=== PATIENT | female | born 1985 | race Caucasian/White ===

== ENCOUNTER 2020-03-13 18:58 | Emergency (ER) | payer SELFPAY ==
[~2020-03-13] VITALS: Ht 172.7 cm; Wt 72.6 kg
[2020-03-13 19:03] VITALS: Ht 172.7 cm; Wt 72.6 kg
[2020-03-13 22:13] VITALS: BP 101/98
== END 2020-03-13 22:14 | disposition home or self-care (01) ==
LOC: ED 18:58
DX: S06.0X0A Concussion without loss of consciousness, initial encounter (principal); S01.01XA Laceration without foreign body of scalp, initial encounter; W18.30XA Fall on same level, unspecified, initial encounter; Y93.89 Activity, other specified; Y92.89 Other specified places as the place of occurrence of the external cause; Y99.8 Other external cause status
CPT/HCPCS: J2001